=== PATIENT | male | born 2000 | race Caucasian/White ===

== ENCOUNTER 2021-01-01 17:25 | Emergency (ER) | payer MEDICARE ==
[~2021-01-01] VITALS: Ht 160 cm; Wt 109.1 kg
[2021-01-01 17:46] VITALS: BP 153/97; Ht 160 cm; Wt 109.1 kg
[2021-01-01 18:14] LABS: BASOPHILS 0.3 % (0-2); EOSINOPHILS 0.4 % (0-7); HEMATOCRIT 45.8 % (42.0-54.0); HEMOGLOBIN 15.5 g/dL (13.5-17.5); LYMPHOCYTES 21.4 % (15-50); MCH 30.6 pg (26.0-34.0); MCHC 33.8 g/dL (31.0-37.0); MCV 90.4 fL (80.0-100.0); MEAN PLATELET VOLUME 7.6 fL (7.4-10.4); MONOCYTES 7.6 % (2-11); NEUTROPHILS 70.3 % (40-80); PLATELET COUNT 274 10x3/uL (130-400); RBC 5.06 10x6/uL (4.20-6.10); RDW 13.3 % (11.5-14.5); WBC 8.8 10x3/uL (4.8-10.8)
[2021-01-01 18:20] LABS: CALC OSMOLALITY 282 mosm/kg (275-300); CALCIUM 8.6 mg/dL (8.5-10.1); CARBON DIOXIDE 29.6 mmol/L (21.0-32.0); CHLORIDE - SERUM 106 mmol/L (98-107); CREATININE - SERUM 1.1 mg/dL (0.6-1.3); GLUCOSE 98 mg/dL (74-106); SODIUM 142 mmol/L (136-145); UREA NITROGEN 13 mg/dL (7-18); eGFR NON AFRICAN AMERICAN 89 mL/min (90-120)
[2021-01-01 18:26] LABS: ALBUMIN 4.2 g/dL (3.4-5.0); ALKALINE PHOSPHATASE 81 U/L (30-120); ALT (SGPT) 62 U/L (10-68); BILIRUBIN - TOTAL 0.66 mg/dL (0.2-1.3); LIPASE 55 U/L (73-393); PROTEIN - SERUM 7.6 g/dL (6.4-8.2)
[2021-01-01 18:44] LABS: BILIRUBIN NEGATIVE (NEGATIVE); KETONE NEGATIVE mg/dL (< 1+); NITRITE NEGATIVE (NEGATIVE); PH 6.5 (5.0-8.0); UROBILINOGEN 3 mg/dL (< 2); WHITE CELLS - URINE 1 HPF (0-1)
== END 2021-01-01 23:48 | disposition left against medical advice (07) ==
LOC: D.ER 17:25
PROVIDERS: Family Medicine
DX: R51.9 Headache, unspecified (principal); J02.9 Acute pharyngitis, unspecified